=== PATIENT | female | born 1955 ===

== ENCOUNTER 2018-09-27 07:39 | Day surgery (SDC) | payer MEDICARE ==
--- NOTE | 2018-09-09 07:36 | HP ---
PREOPERATIVE HISTORY AND PHYSICAL: DATE OF SURGERY/ADMISSION: 09/23/18 DATE OF OFFICE VISIT/ENCOUNTER: 09/07/18 ATTENDING SURGEON: Sara Mayo MD.* (DICTATED BY JACQUI RODRIGUEZ) PROCEDURES: Right ring finger trigger release, right thumb CMC joint arthroplasty. HISTORY OF PRESENT ILLNESS: This is a 63-year-old female who complains of pain at the base of her right thumb and in the ring finger. She is having triggering of the ring finger. She has significant pain at the base of the thumb and x-rays are significant for severe degenerative changes at the thumb CMC joint. She is interested in pursuing surgical intervention for both of these problems. PAST MEDICAL HISTORY: 1. Asthma. 2. History of depression/anxiety. 3. History of cervical/vulvar cancer that is in remission per the patient's report. 4. History of mitral valve "click." PAST SURGICAL HISTORY: 1. Hysterectomy. 2. Right knee arthroscopy. 3. Splenectomy. 4. Tonsillectomy. 5. Left wrist surgery secondary to a fracture as a child. CURRENT MEDICATIONS: 1. Albuterol sulfate 2 puffs q.4 hours p.r.n. 2. Aspirin 81 mg daily. 3. Multivitamin daily. 4. Seroquel 25 mg daily. 5. Trazodone HCL 100 mg daily. 6. Ventolin inhaler p.r.n. 7. Voltaren 75 mg 1 tab daily p.r.n. ALLERGIES: 1. DARVON causes a rash. 2. SODIUM PENTOTHAL causes nausea and vomiting. 3. PPD causes shock. FAMILY MEDICAL HISTORY: Noncontributory. SOCIAL HISTORY: The patient is a retired nurse. She is a former smoker. She quit approximately 5 years ago. Prior to that, she smoked a pack to a pack and a half per day since age 12. She denies recreational drug use. She drinks alcohol on occasion. REVIEW OF SYSTEMS: Negative for general, cephalic, cardiovascular, respiratory , GI, , other musculoskeletal, integumentary, endocrine, neurologic and hematologic symptoms. Infectious Disease: Negative for MRSA, hepatitis C, HIV. PHYSICAL EXAMINATION GENERAL: Well-developed, well-nourished 63-year-old female, in no acute distress. VITAL SIGNS: Height 5 feet 9 inches, weight 253 pounds. Blood pressure 116/74 and pulse rate 76. HEENT: Normocephalic, atraumatic. Pupils are equal, round, and reactive to light and accommodation. Extraocular movements are intact. Throat is clear. NECK: Supple. No palpable lymph nodes. PULMONARY: Lungs are clear to auscultation bilaterally. No wheezes, rales, or rhonchi. CARDIOVASCULAR: Regular rate and rhythm. S1, S2. No murmurs, rubs, or gallops. No clicks appreciated on auscultation. No edema. ABDOMEN: Positive bowel sounds, soft and nontender. MUSCULOSKELETAL: On exam of her right upper extremity and her right hand, she has marked tenderness at the thumb CMC joint. Decreased motion in abduction and opposition. Positive grind test. Intact neurovascular function. She also has tenderness to palpation at the A1 charly of the ring finger and triggering with flexion. NEUROLOGIC: Alert and oriented x3. Cranial nerves II through XII are intact. Sensation is intact to light touch. DIAGNOSTIC STUDIES/LAB REVIEW: Imaging studies: X-rays, AP, lateral, and oblique of the right thumb show severe degenerative arthritis at the carpometacarpal joint. IMPRESSION: Right thumb carpometacarpal arthritis and right ring finger trigger finger. PLAN: The patient is scheduled to undergo right ring trigger finger release, right thumb CMC arthroplasty with Dr. Mayo on 09/23/18. She will return to the office 10 days postop for followup and suture removal. A prescription for Union was e-scribed to the patient's pharmacy for postoperative pain management. JACQUI RODRIGUEZ [id number]/[facility] #: [id number] ERMIAS
[~2018-09-27 07:39] MED LIST: Buffered Lidocaine 1% SYRIN* 1 ML/SYRINGE INTRADERM ONE; Bupivacaine 0.5% SDV PF* 30ML VIAL ONE; Lactated Ringers 1000 ML Bag* 1,000 ML IV SCH; Sodium Citrate/Citric Acid* 15 ML UDC PO ONE
[2018-09-27] MEDS ORDERED: ceFAZolin 2 GM in NS PREMIX(*) 2 GM/100 ML BAG IVPB ONE (07:57)
[2018-09-27] MEDS ORDERED: Sodium Citrate/Citric Acid* 15 ML UDC ONE (07:57)
[2018-09-27] MEDS ORDERED: Midazolam* 1 MG/ML 5 ML VIAL (5 MG) ONE (09:06)
[2018-09-27] MEDS ORDERED: fentaNYL* 50 MCG/ML 2 ML VIAL (100 MCG VIAL) ONE ×2 (09:28→10:45)
[2018-09-27] MEDS ORDERED: Naloxone* 0.4 MG/ML 1 ML VIAL IV PRN (09:59)
[2018-09-27] MEDS ORDERED: Propofol* 10 MG/ML 20 ML BTL ONE (10:07)
[2018-09-27] MEDS ORDERED: Midazolam* 1 MG/ML 2 ML VIAL (2 MG) ONE (10:10)
[2018-09-27] MEDS ORDERED: Acetaminophen IV 1GM/100ML * 100 ML ONE (10:54)
[2018-09-27 11:32] VITALS: BP 115/72
--- NOTE | 2018-09-27 12:09 | OP ---
DATE OF OPERATION: 09/27/18 [facility] DATE OF : 53 SURGEON: Sara Mayo MD. FREELANCE WEB DESIGNER: JACQUI Real. ANESTHESIA: IV regional. PRE-OP DIAGNOSIS: Right ring finger trigger finger and right thumb carpometacarpal arthritis. POST-OP DIAGNOSIS: Right ring finger trigger finger and right thumb carpometacarpal arthritis. OPERATIVE PROCEDURE: Right thumb CMC arthroplasty and right ring trigger release. ESTIMATED BLOOD LOSS: Less than 10 mL. INDICATION FOR PROCEDURE: Akilah is a 63-year-old female who has pain at the base of her thumb and severe degenerative arthritis on x-ray. She also has triggering and locking of her left ring finger. She presents for left ring finger trigger release and left thumb CMC arthroplasty. DESCRIPTION OF PROCEDURE: The patient was brought to the operating room and was given an IV regional anesthetic with a tourniquet around her right upper arm. The skin of her right upper extremity was prepped and draped in the usual sterile fashion. A transverse incision was made centered over the A1 charly of the right ring finger. We dissected bluntly through the subcutaneous tissue. The charly was incised longitudinally. The digital neurovascular bundles were retracted by the surgical technician, Amparo Contreras. The flexor tendon was completely released and in good condition. The wound was irrigated and the skin edges reapproximated with 4-0 nylon suture. Next, an S-shaped incision was made over the thumb CMC joint. We dissected through the subcutaneous tissue. Branches of the radial sensory nerve were retracted by the surgical technician, Amparo Contreras. The APL and EPB tendons were retracted and then the radial artery was dissected out and, again, retracted by the surgical technician , Amparo Contreras, whose assistance in the case was essential for safe completion of the case. A distally based U-shaped flap was created at the thumb CMC joint capsule and this was subperiosteally dissected off of the trapezium. Trapezium was then removed in its entirety and sent for pathology. The wound was irrigated. The CMC joint capsule was secured to the FCR tendon in the base of the wound and then the remainder of the capsule was closed with 4 -0 nylon suture. The skin edges were reapproximated with 4-0 nylon suture. The wound was dressed with Xeroform, 4x4, Webril, and a thumb spica splint, which held the metacarpal nicely abducted. The patient was brought to the recovery room in good condition. [id number]/[facility] #: [id number] ERMIAS
== END 2018-09-27 11:53 | disposition home or self-care (01) ==
LOC: OREAST 07:39
PROVIDERS: ATTEND Orthopaedic Surgery
DX: M18.11 Unilateral primary osteoarthritis of first carpometacarpal joint, right hand (principal); M65.341 Trigger finger, right ring finger; F41.8 Other specified anxiety disorders; M19.90 Unspecified osteoarthritis, unspecified site; G47.33 Obstructive sleep apnea (adult) (pediatric); Z87.891 Personal history of nicotine dependence; J45.909 Unspecified asthma, uncomplicated; Z85.41 Personal history of malignant neoplasm of cervix uteri; Z85.42 Personal history of malignant neoplasm of other parts of uterus
CPT/HCPCS: 88304; 88311; A9270-GY; J0690; J2250; J2704; J3010; J3490